=== PATIENT | male | born 1975 | race Caucasian/White ===

== ENCOUNTER 2018-05-09 12:58 | Observation (INO) ==
--- NOTE | 2018-05-09 13:34 | Emergency Department Note ---
Disposition Clinical Impression: Elevated troponin Disposition: Admitted As Inpatient Condition: Fair Chest Pain HPI - General Chief Complaint: ED Chest Pain Stated Complaint: chest pain x 3 days Time Seen by Provider: 05/09/18 13:15 Source: patient, EMS Limitations: no limitations Vital Signs Reviewed: Yes Nursing Notes Reviewed: Yes - History of Present Illness HPI Narrative: 42-year-old male presents to the emergency department with concern for left- sided chest pain. Patient states that he has been working in the yard lately and picking up things. Patient states that the left-sided chest pain as sharp in nature and intermittent. It worsens when he presses on it and moves his arms certain ways. Patient denies any radiation of the pain anywhere. He was given a couple Advil on the EMS truck and this helped with his symptoms. Patient denies any history of smoking, hypertension, hyperlipidemia. Does report a heart attack and follow her at the age of 59. No nausea or vomiting. No recent travel. No unilateral leg swelling. No history of blood clots. Severity scale (1-10): 4 - Related Data Home Medications Medication Instructions Recorded Confirmed CarBAMazepine XR [Tegretol Xr] 100 mg PO TID 05/09/18 05/09/18 Cholecalciferol (Vitamin D3) 400 unit PO DAILY 05/09/18 05/09/18 [Vitamin D] Divalproex (24 HR) [Depakote ER 500 mg PO DAILY 05/09/18 05/09/18 (24 HR)] EPINEPHrine [Epipen] 0.3 mg IM ONCE PRN 05/09/18 05/09/18 Lacosamide [Vimpat] 200 mg PO BID 05/09/18 05/09/18 Levothyroxine [Synthroid] 125 mcg PO 0630 05/09/18 05/09/18 Loratadine [Claritin] 10 mg PO DAILY 05/09/18 05/09/18 Multivitamin [One Daily Essential] 1 tab PO DAILY 05/09/18 05/09/18 Potassium 99 mg PO DAILY 05/09/18 05/09/18 SUMAtriptan Succinate [Imitrex] 100 mg PO Q2H PRN 05/09/18 05/09/18 Topiramate [Topamax] 300 mg PO BID 05/09/18 05/09/18 Allergies Allergy/AdvReac Type Severity Reaction Status Date / Time No Known Allergies Allergy Verified 05/09/18 14:51 All systems ED: reviewed and negative except as stated. Review of Systems: As Per HPI Constitutional: Denies: fever Cardiovascular: Reports: chest pain. Denies: palpitations Respiratory: Denies: cough, dyspnea Gastrointestinal: Denies: abdominal pain, nausea, vomiting Genitourinary: Denies: urgency, dysuria, frequency Musculoskeletal: Denies: back pain, neck pain Integumentary: Denies: rash Neurological: Denies: headache, weakness, numbness, paresthesias Endocrine: Denies: fatigue Chest Pain PMH - Past Medical History Medical history: Reports: migraine, seizures, thyroid disease Psychiatric history: Reports: anxiety, PTSD - Social History Smoking Status: Never smoker Alcohol use: Reports: none Drug use: Reports: none Physical Exam - General Limitations: no limitations General appearance: alert - Head Head exam: atraumatic, normocephalic - Eye Eye exam: Present: EOMI. Absent: scleral icterus, conjunctival injection - ENT ENT exam: normal exam, normal oropharynx - Neck Neck exam: Present: trachea midline. Absent: tenderness, meningismus - Chest Chest inspection: Present: normal inspection, symmetric chest wall rise - Respiratory Respiratory exam: Present: normal lung sounds bilaterally. Absent: respiratory distress - Cardiovascular Cardiovascular exam: Present: regular rate, normal rhythm, normal heart sounds - Abdominal Exam Abdominal exam: Present: soft, Non-Tender. Absent: distention, guarding, rebound, rigidity Course Vital Signs Temperature 97.5 F L 05/09/18 12:59 Pulse Rate 85 05/09/18 12:59 Respiratory Rate 20 05/09/18 12:59 Blood Pressure 129/86 05/09/18 12:59 O2 Sat by Pulse Oximetry 99 05/09/18 12:59 Temperature 97.5 F L 05/09/18 12:59 Pulse Rate 98 05/09/18 15:40 Respiratory Rate 17 05/09/18 15:40 Blood Pressure 113/72 05/09/18 15:40 O2 Sat by Pulse Oximetry 97 05/09/18 15:40 Oxygen Delivery Oxygen Delivery Room Air Chest Pain - MDM Narrative Medical decision making narrative: 42-year-old male presents emergency department with concern for left-sided chest pain. Physical exam, this patient is in no acute distress. Has normal vital signs. Patient's chest pain responded to Advil. He has reproducible chest wall tenderness. Patient has been exerting himself more lately. We have obtained an EKG does not reveal any ischemic ST changes. Chest x-ray does not reveal any active pulmonary disease. Troponin is elevated at 0.06. I spoke with Dr. Thomson, the hang gliding instructor regarding further care of the patient. He requested to start low-dose ACS heparin. Patient reports not having any active bleeding at this time. Patient was given several nitroglycerin 3 in the emergency department still having some chest pain. Spoke with the family at bedside for admission. They agreed with plan. Patient patient refused aspirin due to concern for allergic reaction. We gave him plavix instead. Hospitalist agreed to accept patient for admission. Chest X-Ray 05/09/18 13:04 IMPRESSION: 1. No active pulmonary disease. D/ / Golden March MD / Golden March MD Interpreting Provider: Golden March MD - Lab Data Result diagrams: 05/09/18 13:50 05/09/18 13:50 Lab Results 05/09/18 05/09/18 05/09/18 Range/Units 13:50 13:50 13:50 WBC 5.6 (4.3-11.1) K/mcL RBC 4.59 (4.19-5.50) M/mcL Hgb 14.3 (12.9-16.9) g/dL Hct 42.8 (37.5-50.1) % MCV 93.2 (83.0-100.0) fL MCH 31.2 (28.0-33.3) pg MCHC 33.4 (31.6-35.5) g/dL RDW 12.8 (11.5-14.5) % Plt Count 191 (140-400) K/mcL MPV 10.6 (9.4-12.4) fL Immature Gran % 0.2 (0-4) % Seg Neutrophils % 56.8 % Lymphocytes % 29.7 % Monocytes % 11.5 % Eosinophils % 1.3 % Basophils % 0.5 % Neutrophils # 3.2 (1.6-8.9) K/mcL Lymphocytes # 1.7 (0.6-4.6) K/mcL Monocytes # 0.6 (0.0-1.3) K/mcL Eosinophils # 0.1 (0.0-0.6) K/mcL Basophils # 0.0 (0.0-0.2) K/mcL PT 11.9 (9.4-12.1) Seconds INR 1.1 APTT 32.7 (26.0-36.0) Seconds Sodium 140 (136-145) mEq/L Potassium 3.7 (3.5-5.1) mEq/L Chloride 110 H (98-107) mEq/L Carbon Dioxide 24 (23-29) mEq/L BUN 10 (6-20) mg/dL Creatinine 0.97 (0.70-1.30) mg/dL Est GFR ( Amer) > 60 (> 60) Est GFR (Non-Af Amer) > 60 (> 60) BUN/Creatinine Ratio 10 (6-26) Glucose 133 H (70-105) mg/dL Calculated Osmolality 291 (280-300) Calcium 9.1 (8.6-10.3) mg/dL Total Bilirubin 0.4 (0.3-1.0) mg/dL AST 25 (13-39) Units/L ALT 30 (7-52) Units/L Alkaline Phosphatase 143 H (34-104) Units/L Troponin I 0.06 H* (< 0.04) ng/mL Serum Total Protein 7.5 (6.4-8.9) g/dL Albumin 4.3 (3.5-5.7) g/dL Globulin 3.2 (2.4-3.5) g/dL Albumin/Globulin Ratio 1.3 (1.1-2.2) - EKG Data EKG attestation: Yes I reviewed and interpreted this EKG. EKG results narrative: 13:06 Ventricular rate 83 bpm, AL interval 132 ms, QRS duration 100 ms, QT 335 ms, QTC 375 ms, normal axis. Sinus rhythm with a ventricular rate of 83 bpm. There is no evidence of any ischemic ST changes on this electrocardiogram. This study was compared to previous one obtained on 04/08/2017.
[2018-05-09 14:04] LABS: Basophils % 0.5 %; Eosinophils # 0.1 K/mcL (0.0-0.6); Eosinophils % 1.3 %; Hematocrit 42.8 % (37.5-50.1); Hemoglobin 14.3 g/dL (12.9-16.9); Immature Granulocytes % 0.2 % (0-4); Lymphocytes # 1.7 K/mcL (0.6-4.6); Lymphocytes % 29.7 %; Mean Corpuscular HGB Conc 33.4 g/dL (31.6-35.5); Mean Corpuscular Hemoglobin 31.2 pg (28.0-33.3); Mean Corpuscular Volume 93.2 fL (83.0-100.0); Mean Platelet Volume 10.6 fL (9.4-12.4); Monocytes # 0.6 K/mcL (0.0-1.3); Monocytes % 11.5 %; Neutrophils # 3.2 K/mcL (1.6-8.9); Platelet Count 191 K/mcL (140-400); Red Blood Count 4.59 M/mcL (4.19-5.50); Red Cell Distribution Width 12.8 % (11.5-14.5); Segmented Neutrophils % 56.8 %
[2018-05-09 14:26] LABS: Alanine Aminotransferase 30 Units/L (7-52); Albumin 4.3 g/dL (3.5-5.7); Albumin/Globulin Ratio 1.3 (1.1-2.2); Alkaline Phosphatase 143 Units/L (34-104); Aspartate Amino Transferase 25 Units/L (13-39); BUN/Creatinine Ratio 10 (6-26); Bilirubin,Total 0.4 mg/dL (0.3-1.0); Blood Urea Nitrogen 10 mg/dL (6-20); Calcium 9.1 mg/dL (8.6-10.3); Carbon Dioxide 24 mEq/L (23-29); Chloride 110 mEq/L (98-107); Globulin 3.2 g/dL (2.4-3.5); Glucose 133 mg/dL (70-105); Osmolality,Calculated 291 (280-300); Potassium 3.7 mEq/L (3.5-5.1); Sodium 140 mEq/L (136-145); Total Protein 7.5 g/dL (6.4-8.9); eGFR For African Americans > 60 (> 60); eGFR For Non-African Americans > 60 (> 60)
[2018-05-09 14:32] LABS: Troponin I 0.06 ng/mL (< 0.04)
[2018-05-09] MEDS ORDERED: Aspirin 325 MG TABLET PO ONE (14:32)
--- NOTE | 2018-05-09 14:48 | Emergency Department Note ---
Disposition Clinical Impression: Elevated troponin Disposition: Admitted As Inpatient Referrals: NONE,PCP [Primary Care Provider] - Forms: ED Satisfaction Letter General Adult HPI - General Chief complaint: ED Chest Pain Stated complaint: chest pain x 3 days Time Seen by Provider: 05/09/18 13:15 Source: patient, EMS Limitations: no limitations - History of Present Illness Pain Scale: 4 - Related Data Allergies Allergy/AdvReac Type Severity Reaction Status Date / Time No Known Allergies Allergy Verified 05/09/18 12:59 Constitutional: Denies: fever Cardiovascular: Reports: chest pain. Denies: palpitations Respiratory: Denies: cough, dyspnea Gastrointestinal: Denies: abdominal pain, nausea, vomiting Genitourinary: Denies: urgency, dysuria, frequency Musculoskeletal: Denies: back pain, neck pain Integumentary: Denies: rash Neurological: Denies: headache, weakness, numbness, paresthesias Endocrine: Denies: fatigue Past Medical History - Past Medical History Medical history: Reports: migraine, seizures, thyroid disease Psychiatric history: Reports: anxiety, PTSD - Social History Smoking Status: Never smoker Smokeless Tobacco Status: No Alcohol use: Reports: none Drug use: Reports: none Physical Exam - General Limitations: no limitations General appearance: alert Course Vital Signs Temperature 97.5 F L 05/09/18 12:59 Pulse Rate 85 05/09/18 12:59 Respiratory Rate 20 05/09/18 12:59 Blood Pressure 129/86 05/09/18 12:59 O2 Sat by Pulse Oximetry 99 05/09/18 12:59 Temperature 97.5 F L 05/09/18 12:59 Pulse Rate 94 05/09/18 13:47 Respiratory Rate 12 05/09/18 13:47 Blood Pressure 127/87 05/09/18 13:47 O2 Sat by Pulse Oximetry 98 05/09/18 13:47 Oxygen Delivery Oxygen Delivery Room Air Medical Decision Making - Lab Data Result diagrams: 05/09/18 13:50 05/09/18 13:50 Lab Results 05/09/18 05/09/18 Range/Units 13:50 13:50 WBC 5.6 (4.3-11.1) K/mcL RBC 4.59 (4.19-5.50) M/mcL Hgb 14.3 (12.9-16.9) g/dL Hct 42.8 (37.5-50.1) % MCV 93.2 (83.0-100.0) fL MCH 31.2 (28.0-33.3) pg MCHC 33.4 (31.6-35.5) g/dL RDW 12.8 (11.5-14.5) % Plt Count 191 (140-400) K/mcL MPV 10.6 (9.4-12.4) fL Immature Gran % 0.2 (0-4) % Seg Neutrophils % 56.8 % Lymphocytes % 29.7 % Monocytes % 11.5 % Eosinophils % 1.3 % Basophils % 0.5 % Neutrophils # 3.2 (1.6-8.9) K/mcL Lymphocytes # 1.7 (0.6-4.6) K/mcL Monocytes # 0.6 (0.0-1.3) K/mcL Eosinophils # 0.1 (0.0-0.6) K/mcL Basophils # 0.0 (0.0-0.2) K/mcL Sodium 140 (136-145) mEq/L Potassium 3.7 (3.5-5.1) mEq/L Chloride 110 H (98-107) mEq/L Carbon Dioxide 24 (23-29) mEq/L BUN 10 (6-20) mg/dL Creatinine 0.97 (0.70-1.30) mg/dL Est GFR ( Amer) > 60 (> 60) Est GFR (Non-Af Amer) > 60 (> 60) BUN/Creatinine Ratio 10 (6-26) Glucose 133 H (70-105) mg/dL Calculated Osmolality 291 (280-300) Calcium 9.1 (8.6-10.3) mg/dL Total Bilirubin 0.4 (0.3-1.0) mg/dL AST 25 (13-39) Units/L ALT 30 (7-52) Units/L Alkaline Phosphatase 143 H (34-104) Units/L Troponin I 0.06 H* (< 0.04) ng/mL Serum Total Protein 7.5 (6.4-8.9) g/dL Albumin 4.3 (3.5-5.7) g/dL Globulin 3.2 (2.4-3.5) g/dL Albumin/Globulin Ratio 1.3 (1.1-2.2) Attestation Statement - Attestation Attestation: I examined this patient and my medical decision-making was reviewed with the Resident Physician. I agree with the documented findings, disposition and treatment plan as described except to the extent set forth below. 42 year old male presnte to the ED with complaints of chest pain for the past 3 days and states that he has mild dyspnea although not hypoxic. He has risk factors for aCS and has a positive tropoing of 0.06 wihout ischemic changes on eKG. CXR is negative. WE will admit tm edicine he has been medicated with ASAand is currently chest pain free
[2018-05-09 14:49] LABS: INR 1.1; Prothrombin Time 11.9 Seconds (9.4-12.1)
[2018-05-09 14:52] LABS: Activated Partial Thrombo Time 32.7 Seconds (26.0-36.0)
[2018-05-09] MEDS: Nitroglycerin 0.4 MG TAB.SUBL SL PRN ×3 (14:55→15:14)
[2018-05-09] MEDS ORDERED: *HR* Heparin 5,000 UNIT/ML VIAL IVP ONE (15:01)
[2018-05-09] MEDS ORDERED: *HR* Heparin 5,000 UNIT/ML VIAL IVP PRN (15:01)
[2018-05-09] MEDS: Heparin 25,000 UNIT/500 ML D5W 25,000 UNIT/500 ML BAG IVC SCH (15:35)
[2018-05-09] MEDS ORDERED: Naloxone 0.4 MG/ML INJ IVP PRN (16:27)
--- NOTE | 2018-05-09 16:33 | Internal Med History&Physical ---
Date of Encounter: 05/09/18 Time of Encounter: 16:30 Internal Medicine - H&P: HPI Chief complaint: Chest pain History of present illness: Mr. Ghosh is a 42 year old male with a history of seizures, hypothyroid who presents for chest pain evaluation. Admitted for observation given mild elevation in troponin. Patient reports 3 day history of chest pain localized to left chest, no radiation, dull aching pain in quality, 3-4 out of 10 rating. Left chest pain appears at least partially reproduced on palpation. Pain currently in the ER was 2 out of 10 after commencement of heparin drip given mild troponin elevation. Of note patient has been suspicious that his symptoms could be related to new medicines in the outpatient. He has as history of seizure and is in the process of tapering off Tegretol with transition to Depakote. In terms of risk factor he denies obesity, denies smoking, no diabetes, but has a strong history in his father who had 2 MIs at age 60. He denies any personal history of cardiac disease EKG personally reviewed with rate 83, normal sinus rhythm XR/XR chest 1V portable IMPRESSION: 1. No active pulmonary disease. Past Med Surg Social Fam HX - Past Medical History Medical history: migraine, seizures, thyroid disease Psychiatric history: anxiety, PTSD - Past Surgical History Additional surgical history: "EYE SURGERIES/ACID REFLUX SURGERY" - Social History Smoking Status: Never smoker Smokeless Tobacco Status: No Alcohol use: none Drug use: none Internal Medicine - H&P: Meds CarBAMazepine XR [Tegretol Xr] 100 mg PO TID 05/09/18 [History] Cholecalciferol (Vitamin D3) [Vitamin D] 400 unit PO DAILY 05/09/18 [History] Divalproex (24 HR) [Depakote ER (24 HR)] 500 mg PO DAILY 05/09/18 [History] EPINEPHrine [Epipen] 0.3 mg IM ONCE PRN 05/09/18 [History] Lacosamide [Vimpat] 200 mg PO BID 05/09/18 [History] Levothyroxine [Synthroid] 125 mcg PO 0630 05/09/18 [History] Loratadine [Claritin] 10 mg PO DAILY 05/09/18 [History] Multivitamin [One Daily Essential] 1 tab PO DAILY 05/09/18 [History] Potassium 99 mg PO DAILY 05/09/18 [History] SUMAtriptan Succinate [Imitrex] 100 mg PO Q2H PRN 05/09/18 [History] Topiramate [Topamax] 300 mg PO BID 05/09/18 [History] 3 Allergy/AdvReac Type Severity Reaction Status Date / Time No Known Allergies Allergy Verified 05/09/18 14:51 All Systems PM: A 10-system review of systems was performed and is negative for pertinent findings except as documented above in the HPI. Review of systems: ROS 14 point review of systems reviewed as best as possible given presentation. Pertinent positive or negative as per HPI or otherwise reviewed as negative - Constitutional Vitals: Temp Pulse Resp BP Pulse Ox 97.5 F L 98 17 113/72 97 05/09/18 12:59 05/09/18 15:40 05/09/18 15:40 05/09/18 15:40 05/09/18 15:40 Exam: General - AAO x 3 Psych - Appropriate affect/speech. No agitation Eyes - BRANT. Eye lids intact. No scleral icterus Neuro - No gross peripheral or central neuro deficits on inspection Heart - MSK pain along the left chest that is reproducible on palpation. Sinus. RRR. S1 and S2 present. No added HS/murmurs appreciated. No elevated JVD appreciated. Lung - Adequate air entry b/l, No crackles/wheezes appreciated GI - Soft, non-tender. No hepatosplenomegaly/ascites. BS+ - No CVA/suprapubic tenderness or palpable bladder distension Skin - Intact. No rash/petechiae/ecchymosis. Warm extremities. Trace bilateral lower extremity edema Internal Med - H&P Results - Labs CBC & Chem 7: 05/09/18 13:50 05/09/18 13:50 - Assessment and plan (1) Chest pain Current Visit: Yes Status: Acute Assessment and plan: Chest pain is at least partially reproducible in the setting of very mild trop elevation which prompted commencement of IV heparin drip in the ED We will trend troponin and repeat EKG in the morning I am uncertain whether this represents ACS. Will need further monitoring in the hospital Qualifiers: Chest pain type: precordial pain Qualified Code(s): R07.2 - Precordial pain (2) Seizure Current Visit: Yes Status: Acute Assessment and plan: In the process of undergoing Tegretol taper with transition to Depakote in the outpatient Continue AED (3) Hypothyroid Current Visit: Yes Status: Acute Assessment and plan: Continue Synthroid Qualifiers: Hypothyroidism type: acquired Qualified Code(s): E03.9 - Hypothyroidism, unspecified - Time Spent With Patient Total time spent is greater than 50% in coordination of care (as documented) at patient's floor/unit and/or counseling patient:
[2018-05-09] MEDS: CarBAMazepine XR (12 hr) 100 MG TAB PO SCH (20:16)
[2018-05-09] MEDS: Topiramate 100 MG TABLET PO SCH (20:17)
[2018-05-10] MEDS ORDERED: Acetaminophen 325 MG TABLET PO PRN (05:27)
[2018-05-10 05:49] LABS: Heparin anti-factor XA UFH 0.7 IU/mL (0.30-0.70)
[2018-05-10] MEDS: *HR* Heparin 5,000 UNIT/ML VIAL IVP PRN ×2 (06:05→13:15)
[2018-05-10 07:47] LABS: Activated Partial Thrombo Time 124.3 Seconds (26.0-36.0)
[2018-05-10] MEDS: Divalproex (24 HR) 500 MG TABLET PO SCH (09:41)
[2018-05-10] MEDS: Topiramate 100 MG TABLET PO SCH ×2 (09:42→22:19)
[2018-05-10] MEDS: CarBAMazepine XR (12 hr) 100 MG TAB PO SCH ×3 (09:42→22:19)
[2018-05-10] MEDS: Cholecalciferol (D-3) 1,000 UNIT TABLET PO SCH (09:43)
[2018-05-10 11:51] LABS: Activated Partial Thrombo Time > 360.0 Seconds (26.0-36.0)
[2018-05-10 12:04] LABS: Heparin anti-factor XA UFH 1.69 IU/mL (0.30-0.70)
[2018-05-10] MEDS: Loratadine 10 MG TABLET PO SCH (13:18)
--- NOTE | 2018-05-10 14:25 | Internal Med Progress Note ---
Date of Encounter: 05/10/18 Time of Encounter: 14:25 - Assessment and plan (1) Chest pain Current Visit: Yes Status: Acute Assessment and plan: Chest pain is at least partially reproducible in the setting of very mild trop elevation which prompted commencement of IV heparin drip in the ED Troponin 0.06 on admission followed by 0.05, 0.05. Patient does list to me a significant family history EKG repeated unremarkable. Arrange for stress test today/tomorrow . Qualifiers: Chest pain type: precordial pain Qualified Code(s): R07.2 - Precordial pain (2) Seizure Current Visit: Yes Status: Acute Assessment and plan: In the process of undergoing Tegretol taper with transition to Depakote in the outpatient Continue AED (3) Hypothyroid Current Visit: Yes Status: Acute Assessment and plan: Continue Synthroid Qualifiers: Hypothyroidism type: acquired Qualified Code(s): E03.9 - Hypothyroidism, unspecified - Time Spent With Patient Total time spent is greater than 50% in coordination of care (as documented) at patient's floor/unit and/or counseling patient: - Subjective Interval history: Patient states no chest pain at this time. Denies SOB, n/v, palpiations, numbness/tingling. - Constitutional Vitals: Temp Pulse Resp BP Pulse Ox 97.3 F L 75 19 114/79 100 05/10/18 10:41 05/10/18 10:41 05/10/18 10:41 05/10/18 10:41 05/10/18 10:41 Exam: Anxious appearing. - Head Head exam: Present: atraumatic, normocephalic - Eye Eye exam: Present: PERRL, conjuntiva pink, sclera anicteric Pupils: Present: PERRL - Neck Neck exam general surgery: Present: supple, trachea midline. Absent: lymphadenopathy - Respiratory Respiratory exam: Present: CTAB. Absent: accessory muscle use, rales, rhonchi, wheezes - Cardiovascular Cardiovascular exam: Present: RRR, +S1, +S2. Absent: diastolic murmur, gallop, rubs, systolic murmur - GI/Abdominal GI/Abdominal exam: Present: normal bowel sounds, soft, no peritoneal signs. Absent: distended, tenderness - Extremities Exam Extremities exam: Present: warm, radial pulses palpable and symmetrical. Absent : calf tenderness, cyanotic, pedal edema - Neurological Exam Neurological exam: Present: CN II-XII intact, oriented X3, no focal deficits. Absent: pronater drift, facial droop, speech deficit - Skin Skin exam: Present: dry, intact Internal Medicine: Result - Labs CBC & Chem 7: 05/09/18 13:50 05/09/18 13:50 Labs: Cardiac Enzymes 05/09/18 05/10/18 05/10/18 Range/Units 17:56 00:35 05:25 Troponin I 0.05 H* 0.06 H* 0.05 H* (< 0.04) ng/mL 05/10/18 Range/Units 12:12 Troponin I 0.05 H* (< 0.04) ng/mL - ABG Interpretation ABG results: PT/INR, D-dimer PT 11.9 Seconds (9.4-12.1) 05/09/18 13:50 Consult Discharge Plan - Plan Referrals: NONE,PCP [Primary Care Provider] -
--- NOTE | 2018-05-10 16:24 | Electrocardiograph Report ---
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
[2018-05-10] MEDS: Heparin 25,000 UNIT/500 ML D5W 25,000 UNIT/500 ML BAG IVC SCH (20:20)
[2018-05-11 03:15] LABS: Basophils % 0.4 %; Eosinophils # 0.1 K/mcL (0.0-0.6); Eosinophils % 0.9 %; Hematocrit 44.3 % (37.5-50.1); Hemoglobin 14.7 g/dL (12.9-16.9); Immature Granulocytes % 0.2 % (0-4); Lymphocytes # 2.6 K/mcL (0.6-4.6); Lymphocytes % 31.3 %; Mean Corpuscular HGB Conc 33.2 g/dL (31.6-35.5); Mean Corpuscular Hemoglobin 30.6 pg (28.0-33.3); Mean Corpuscular Volume 92.1 fL (83.0-100.0); Mean Platelet Volume 10.4 fL (9.4-12.4); Monocytes # 0.9 K/mcL (0.0-1.3); Monocytes % 11.4 %; Neutrophils # 4.6 K/mcL (1.6-8.9); Platelet Count 213 K/mcL (140-400); Red Blood Count 4.81 M/mcL (4.19-5.50); Red Cell Distribution Width 12.8 % (11.5-14.5); Segmented Neutrophils % 55.8 %
[2018-05-11 03:34] LABS: BUN/Creatinine Ratio 10 (6-26); Blood Urea Nitrogen 10 mg/dL (6-20); Calcium 9.2 mg/dL (8.6-10.3); Carbon Dioxide 21 mEq/L (23-29); Chloride 111 mEq/L (98-107); Glucose 111 mg/dL (70-105); Osmolality,Calculated 292 (280-300); Potassium 3.6 mEq/L (3.5-5.1); Sodium 141 mEq/L (136-145); eGFR For African Americans > 60 (> 60); eGFR For Non-African Americans > 60 (> 60)
[2018-05-11] MEDS: Divalproex (24 HR) 500 MG TABLET PO SCH (12:18)
[2018-05-11] MEDS: Topiramate 100 MG TABLET PO SCH ×2 (12:18→22:26)
[2018-05-11] MEDS: Cholecalciferol (D-3) 1,000 UNIT TABLET PO SCH (12:18)
[2018-05-11] MEDS: Loratadine 10 MG TABLET PO SCH (12:18)
[2018-05-11] MEDS: CarBAMazepine XR (12 hr) 100 MG TAB PO SCH ×3 (12:18→22:25)
--- NOTE | 2018-05-11 17:32 | Internal Med Progress Note ---
Date of Encounter: 05/11/18 Time of Encounter: 17:30 - Assessment and plan (1) Chest pain Current Visit: Yes Status: Acute Assessment and plan: Add Plavix patient had allergy to aspirin, check. check lipid panel , nitroglycerin as needed continue heparin drip until we have final report of stress test. Possible discharge next 24-hour if his stress test is negative Qualifiers: Chest pain type: precordial pain Qualified Code(s): R07.2 - Precordial pain (2) Seizure Current Visit: Yes Status: Acute (3) Hypothyroid Current Visit: Yes Status: Acute Qualifiers: Hypothyroidism type: acquired Qualified Code(s): E03.9 - Hypothyroidism, unspecified - Time Spent With Patient Total time spent is greater than 50% in coordination of care (as documented) at patient's floor/unit and/or counseling patient: 25 - 35 minutes - Subjective Interval history: Patient denies any chest pain or shortness of breath. Patient denies any nausea vomiting. Patient had a stress test today result is pending - Constitutional Vitals: Temp Pulse Resp BP Pulse Ox 98.2 F 81 16 107/66 99 05/11/18 16:09 05/11/18 16:09 05/11/18 16:09 05/11/18 16:09 05/11/18 16:09 General appearance: Present: no acute distress - Head Head exam: Present: atraumatic, normocephalic - Neck Neck exam general surgery: Present: supple, trachea midline. Absent: lymphadenopathy - Respiratory Respiratory exam: Present: CTAB. Absent: accessory muscle use, rales, rhonchi, wheezes - Cardiovascular Cardiovascular exam: Present: RRR, +S1, +S2. Absent: diastolic murmur, gallop, rubs, systolic murmur - GI/Abdominal GI/Abdominal exam: Present: normal bowel sounds, soft, no peritoneal signs. Absent: distended, tenderness - Extremities Exam Extremities exam: Present: warm, radial pulses palpable and symmetrical. Absent : calf tenderness, cyanotic, pedal edema - Neurological Exam Neurological exam: Present: CN II-XII intact, oriented X3, no focal deficits. Absent: pronater drift, facial droop, speech deficit - Skin Skin exam: Present: dry, intact Internal Medicine: Result - Labs CBC & Chem 7: 05/11/18 03:04 05/11/18 03:04 Labs: Short CBC 05/11/18 Range/Units 03:04 WBC 8.2 (4.3-11.1) K/mcL Hgb 14.7 (12.9-16.9) g/dL Hct 44.3 (37.5-50.1) % Plt Count 213 (140-400) K/mcL Neutrophils # 4.6 (1.6-8.9) K/mcL BMP 05/11/18 03:04 Sodium 141 Potassium 3.6 Chloride 111 H Carbon Dioxide 21 L BUN 10 Creatinine 0.98 Glucose 111 H Calcium 9.2 Cardiac Enzymes 05/10/18 05/11/18 Range/Units 19:20 03:04 Troponin I 0.06 H* 0.05 H* (< 0.04) ng/mL - ABG Interpretation ABG results: PT/INR, D-dimer PT 11.9 Seconds (9.4-12.1) 05/09/18 13:50 Consult Discharge Plan - Plan Referrals: NONE,PCP [Primary Care Provider] -
[2018-05-11] MEDS: Heparin 25,000 UNIT/500 ML D5W 25,000 UNIT/500 ML BAG IVC SCH (19:56)
[2018-05-11] MEDS ORDERED: Nystatin POWDER 30 GM BOTTLE TP SCH (21:00)
[2018-05-12 08:04] VITALS: BP 111/67
[2018-05-12] MEDS: Topiramate 100 MG TABLET PO SCH (08:31)
[2018-05-12] MEDS: Cholecalciferol (D-3) 1,000 UNIT TABLET PO SCH (08:32)
[2018-05-12] MEDS: CarBAMazepine XR (12 hr) 100 MG TAB PO SCH (08:32)
[2018-05-12] MEDS: Loratadine 10 MG TABLET PO SCH (08:32)
[2018-05-12] MEDS: Divalproex (24 HR) 500 MG TABLET PO SCH (08:32)
--- NOTE | 2018-05-12 10:10 | Discharge Summary ---
- NOTES TO OUTPATIENT PROVIDER Notes to Outpatient Provider: Follow-up with family doctor in 1-2 weeks, follow- up with cardiology in 2 weeks Orders not resulted at time of discharge: Pending orders 05/10/18 06:00 EKG [ECG 12 lead ECG] [ECG] AM 0600 05/11/18 17:35 Lipid Panel Routine 05/13/18 04:18 PTT [Activated Partial Thrombo Time] [COAG] Stat Date of Encounter: 05/12/18 Time of Encounter: 10:04 - Discharge Diagnosis (1) Chest pain Priority: Primary Status: Acute Qualifiers: Chest pain type: precordial pain Qualified Code(s): R07.2 - Precordial pain (2) Seizure Priority: Secondary Status: Acute (3) Hypothyroid Priority: Secondary Status: Acute Qualifiers: Hypothyroidism type: acquired Qualified Code(s): E03.9 - Hypothyroidism, unspecified Hospital course: Mr. Ghosh is a 42 year old male with past medical history of hypothyroidism and seizure disorder, patient came to the hospital with complain of 3 days history of left side chest pain dull aching 3-4 out of 10 in severity. Workup done, patient had mild elevation of troponin 0.0 5.06, he had left-sided chest wall tenderness, EKG normal sinus rhythm patient was admitted to the hospital ,we started patient on nitroglycerin and heparin drip continue to monitor patient during hospitalization stress echo was done which show normal ejection fraction and no evidence of ischemia, discussed with cardiology team environmental solutions engineer recommended for the patient follow-up with an outpatient with family doctor as well as cardiology. Patient is currently denies any chest pain or shortness of breath for last 48 hour, he is feeling back to his baseline. Counseling patient about importance of follow-up with cardiology,to report if any recurrence chest pain , may consider evaluation by pulmonary for exercise-induced asthma. Follow-up with family doctor may need to hve pulmonary function test to evaluate for exercise-induced asthma, report any episode of chest pain, discussed with patient about sensitivity and specificity of stress test, if he had any recurrent chest pain may consider further invasive workup . Time spent discussing smoking cessation with patient: more than 10 minutes - Time Spent with Patient Total time spent providing and/or coordinating discharge services: Less than 30 minutes - Discharge Medications Prescriptions: Clopidogrel [Plavix] 75 mg PO DAILY #90 tablet Nystatin POWDER [Nystop] 1 appl TP BID #1 bottle Pravastatin Sodium 10 mg PO DAILY #30 tablet Home Medications: CarBAMazepine XR [Tegretol Xr] 100 mg PO TID 05/09/18 [History] Cholecalciferol (Vitamin D3) [Vitamin D3] 400 unit PO DAILY 05/09/18 [History] Divalproex (24 HR) [Depakote ER (24 HR)] 500 mg PO DAILY 05/09/18 [History] EPINEPHrine [Epipen] 0.3 mg IM ONCE PRN 05/09/18 [History] Lacosamide [Vimpat] 200 mg PO BID 05/09/18 [History] Levothyroxine [Synthroid] [place] [address]/09/18 [History] Loratadine [Claritin] 10 mg PO DAILY 05/09/18 [History] Multivitamin [One Daily Essential] 1 tab PO DAILY 05/09/18 [History] Potassium 99 mg PO DAILY 05/09/18 [History] SUMAtriptan Succinate [Imitrex] 100 mg PO Q2H PRN 05/09/18 [History] Topiramate [Topamax] 300 mg PO BID 05/09/18 [History] Cholecalciferol (D-3) [Vitamin D] 1,000 unit PO DAILY tablet 05/12/18 [Rx] Clopidogrel [Plavix] 75 mg PO DAILY #90 tablet 05/12/18 [Rx] Nystatin POWDER [Nystop] 1 appl TP BID #1 bottle 05/12/18 [Rx] Pravastatin Sodium 10 mg PO DAILY #30 tablet 05/12/18 [Rx] Allergies/Adverse Reactions: 3 Allergy/AdvReac Type Severity Reaction Status Date / Time aspirin Allergy Itching Verified 05/09/18 16:44 Date of admission: 05/09/18 16:21 Primary care physician: PCP NONE Discharging clinician: Ewa Rodriguez Anticipated date of discharge: 05/12/18 - Constitutional Vitals: Temp Pulse Resp BP Pulse Ox 97.6 F 73 16 111/67 99 05/12/18 08:02 05/12/18 08:02 05/12/18 08:02 05/12/18 08:02 05/12/18 08:02 General appearance: Present: no acute distress - Head Head exam: Present: atraumatic, normocephalic - Neck Neck exam general surgery: Present: supple, trachea midline. Absent: lymphadenopathy - Respiratory Respiratory exam: Present: CTAB. Absent: accessory muscle use, rales, rhonchi, wheezes - Cardiovascular Cardiovascular exam: Present: RRR, +S1, +S2. Absent: diastolic murmur, gallop, rubs, systolic murmur - GI/Abdominal GI/Abdominal exam: Present: normal bowel sounds, soft, no peritoneal signs. Absent: distended, tenderness - Extremities Exam Extremities exam: Present: warm, radial pulses palpable and symmetrical. Absent : calf tenderness, cyanotic, pedal edema - Patient Status Disposition: Home, Self-Care Condition: Fair Functional capacity at discharge: independent ambulation Overall status at discharge: patient is progressing back to baseline - Discharge Instructions Instructions: Chest Pain (DC) Follow Up With: NONE,PCP [Primary Care Provider] - Eloise Thomson [Partnered Physician] - (Follow-up with cardiology in 2 weeks) - Diet and Activity Activity: increase activity as tolerated Diet: low fat, low cholesterol, low salt diet
[2018-05-12 10:25] LABS: Cholesterol 151 mg/dL (< 200); HDL Cholesterol 38 mg/dL (40-59); LDL Cholesterol,Calculated 83 mg/dL (0-99); Triglycerides 152 mg/dL (< 150)
== END 2018-05-12 14:40 | disposition home or self-care (01) ==
LOC: EMEROO 12:58 → 2SOUTHHOLD 12:58 → 2NENU 05-10 18:08 → UNDODISOB 05-12 13:33
PROVIDERS: ADMIT Family Medicine; ATTEND Family Medicine